=== PATIENT | male | born 1940 | race Asian ===

== ENCOUNTER 2016-05-26 09:29 | Emergency (ER) | payer OTHER ==
[~2016-05-26] VITALS: Ht 182.9 cm; Wt 110.0 kg
[~2016-05-26 09:29] MED LIST: ALBU8.5H3 INH; ALBU8.5H5 INH; PRED20TA PO
[2016-05-26 09:36] VITALS: Ht 182.9 cm; Wt 110.0 kg
--- NOTE | 2016-05-26 11:12 | ERD ---
ER Documentation Chief Complaint Date/Time DATE: 05/26/16 Chief Complaint Boil in nose HPI The patient is a 76-year-old male who presents to the Emergency Department with complaint of a "boil" in his nose. The patient reports that this boil has been present inside the left nostril for the past week. Yesterday, the boil began to spontaneously drain, with improvement in the patient's discomfort. The patient notes that he was seen for these symptoms by his primary medical provider on Tuesday, at which time the patient was placed on a course of Bactrim DS. He has been taking the antibiotics as prescribed, and feels as if his symptoms are improving. He has a follow-up appointment with his primary medical provider in 2 days. However, he presents today solely for pain control. He states that the antibiotics are treating the infection, but he continues to experience a throbbing, aching pain inside the left nostril. He rates his current pain as 6/10. He has not yet taken any medication for pain relief. He denies fevers, chills, nausea, vomiting, weakness, dizziness or headache. No other complaints at this time. ROS All systems reviewed and are negative except as per history of present illness. Medications Home Meds Active Scripts Ibuprofen* (Motrin*) 400 Mg Tab, 400 MG PO Q6, #20 TAB Prov:MARCIA TEJADA PA-C 05/26/16 Tramadol HCl (Tramadol HCl) 50 Mg Tablet, 50 MG PO Q6 Y for PAIN, #8 TAB Prov:MARCIA TEJADA PA-C 05/26/16 Albuterol Sulfate* (Proair HFA*) 8.5 Gm Hfa.aer.ad, 2 PUFF INH Q4, #1 INHALER Prov:CLAUDIA SNEED 09/19/15 Prednisone* (Prednisone*) 20 Mg Tab, 40 MG PO DAILY for 4 Days, TAB Prov:BRONSON CARRINGTON PA-C 02/18/15 Albuterol Sulfate* (Albuterol Sulfate* HFA) 8.5 Gm Hfa.aer.ad, 1-2 PUFF INH Q4 Y for SHORTNESS OF BREATH, #1 EA Prov:BRONSON CARRINGTON PA-C 02/18/15 Prednisone* (Prednisone*) 20 Mg Tab, 60 MG PO DAILY for 5 Days Prov:SELVIN BURCIAGA MD 11/27/14 Albuterol Sulfate* (Albuterol Sulfate* HFA) 8.5 Gm Hfa.aer.ad, 1-2 PUFF INH Q4 Y for SHORTNESS OF BREATH, #1 EA Prov:SELVIN BURCIAGA MD 11/27/14 Allergies Allergies: Coded Allergies: No Known Allergy (Unverified , 02/18/15) PMhx/Soc History of Surgery: No Anesthesia Reaction: No Hx Neurological Disorder: No Hx Respiratory Disorders: No Hx Cardiac Disorders: No Hx Psychiatric Problems: No Hx Miscellaneous Medical Probl: No Hx Alcohol Use: No Hx Substance Use: No Hx Tobacco Use: No Smoking Status: Former smoker Physical Exam Vitals Vital Signs Date Time Temp Pulse Resp B/P Pulse Ox O2 Delivery O2 Flow Rate FiO2 05/26/16 09:36 98.1 53 18 150/89 99 Physical Exam Const: Well-developed, well-nourished, in no acute distress. Head: Normocephalic. Atraumatic Eyes: Normal Conjunctiva ENT: Minimal amount of purulent discharge inside the left nostril. No nasal septal involvement. No focal abscess formation. No bleeding. Moist mucous membranes. Neck: Supple. No tenderness. Resp: Clear to auscultation bilaterally Cardio: Regular rate and rhythm Skin: Clean, dry, intact. Ext: Moving all extremities. Neur: Awake and alert Psych: Cooperative. Results 24 hrs Current Medications Medications (Trade) Dose Ordered Sig/Rosalina Route PRN Reason Start Time Stop Time Status Last Admin Dose Admin Ibuprofen (Motrin) 600 mg ONCE ONCE PO 05/26/16 11:30 05/26/16 11:31 DC 05/26/16 11:14 Procedures/MDM This is a 76-hear-old male presenting to the Emergency Department with a left- sided intranasal abscess that began spontaneously draining yesterday. The patient's symptoms began one week ago. Tuesday, he was placed on a course of Bactrim DS, which he has been taking as directed. Since starting the antibiotics , the patient has already noted improvement in his symptoms. However, he presents today for pain control. No nasal septal involvement noted. No evidence of sepsis. At this time, the patient is in stable condition and therefore he can be discharged home with prescriptions for Tramadol and Ibuprofen and strict return precautions for signs of worsening condition. The patient is advised to follow up with his primary medical provider within 1-2 days for reevaluation and further management, or return to the ED sooner for any new or worsening symptoms. I shared my medical decision making and plan with the patient and he verbally understands and agrees with the plan for further observation and care as an outpatient. At the time of discharge all questions were answered. Departure Diagnosis: Primary Impression: Nasal abscess Condition: Stable Patient Instructions: Abscess Drainage, Abscess, Antiobiotic Treatment Only Additional Instructions: Follow up with your primary medical provider in 1-2 days for reevaluation and further management. You may need to see an ENT specialist for further evaluation and well. Return to the ED sooner for any new or worsening symptoms. MARCIA TEJADA PA-C May 26, 2016 11:12
[2016-05-26] MEDS ORDERED: IBUP400T22 PO (11:13)
[2016-05-26] MEDS ORDERED: TRAM50TA2 PO (11:13)
[2016-05-26] MEDS ORDERED: IBUPROFEN 600 MG TAB PO ONE (11:30)
== END 2016-05-26 11:25 | disposition home or self-care (01) ==
LOC: FTE 09:29
DX: J34.0 Abscess, furuncle and carbuncle of nose (principal); Z87.891 Personal history of nicotine dependence
CPT/HCPCS: 99283

== ENCOUNTER 2016-11-12 10:00 | Emergency (ER) | payer OTHER ==
[~2016-11-12] VITALS: Ht 172.7 cm; Wt 101.5 kg
[~2016-11-12 10:00] MED LIST changes: +IBUP400T22 PO; +TRAM50TA2 PO
[2016-11-12 10:19] VITALS: Ht 172.7 cm; Wt 101.5 kg
[2016-11-12] MEDS ORDERED: ALBUTEROL 0.083% (NEB) 2.5 MG/3 ML AMP HHN STA (11:03)
[2016-11-12] MEDS ORDERED: DEXAMETHASONE 10 MG/ML 1 ML INJ IM ONE (11:30)
[2016-11-12] MEDS ORDERED: IPRATROPIUM (NEB) 0.5 MG/2.5 ML AMP HHN ONE (11:30)
--- NOTE | 2016-11-12 11:47 | RADRPT ---
PROCEDURE: XR Chest. CLINICAL INDICATION: cough x 2 wks, hx asthma TECHNIQUE: Single frontal view of the chest was obtained COMPARISON: Chest x-ray 09/19/2015 FINDINGS: The cardiomediastinal silhouette is within normal limits. No pneumothorax, pleural effusion, or consolidation is identified. There is no evidence of pulmonary vascular congestion. Biapical pleural parenchymal scarring is noted. There are degenerative changes of the visualized spine. IMPRESSION: No evidence of an acute cardiopulmonary process. No significant change compared to prior study. RPTAT: QQ Physician Josh Date Time Electronically viewed and signed by Physician Josh on 11/12/2016 11:47 RC/
[2016-11-12] MEDS ORDERED: GUAI-637 PO (12:24)
[2016-11-12] MEDS ORDERED: SODI126M NASAL (12:24)
--- NOTE | 2016-11-12 15:05 | ERD ---
ER Documentation Chief Complaint Date/Time DATE: 11/12/16 TIME: 14:56 Chief Complaint Pt Complains of a cough x 3 days HPI 76-year-old male with history of asthma is complaining of cough 2 weeks. The cough is nonproductive, worse at night. Cough is better after using the inhaler. He was seen by PCP, was given promethazine with codeine cough syrup, which had helped. He has now run out of the cough syrup, would like to have a refill. He does have a follow-up appointment was PCP in 3 days. Patient reports shortness breath at times when he is coughing, but denies shortness of breath at this time. Denies fever or chills. ROS All systems reviewed and are negative except as per history of present illness. Medications Home Meds Active Scripts Sodium Chloride (Saline Nasal Mist) 126 Ml Mist, 2 SPRAY NASAL Q2H Y for NASAL CONGESTION, #1 BOTTLE Prov:SHARON MANTILLA. [employer]ER 11/12/16 Guaifenesin* (Robitussin*) 100 Mg/5 Ml Syrup, 200 MG PO Q4H Y for COUGH, #120 ML Prov:SHARON MANTILLA. [employer] P[employer]CHER 11/12/16 Ibuprofen* (Motrin*) 400 Mg Tab, 400 MG PO Q6, #20 TAB Prov:MARCIA TEJADA PA-C 05/26/16 Tramadol HCl (Tramadol HCl) 50 Mg Tablet, 50 MG PO Q6 Y for PAIN, #8 TAB Prov:MARCIA TEJADA PA-C 05/26/16 Albuterol Sulfate* (Proair HFA*) 8.5 Gm Hfa.aer.ad, 2 PUFF INH Q4, #1 INHALER Prov:CLAUDIA SNEED 09/19/15 Prednisone* (Prednisone*) 20 Mg Tab, 40 MG PO DAILY for 4 Days, TAB Prov:BRONSON CARRINGTON PA-C 02/18/15 Albuterol Sulfate* (Albuterol Sulfate* HFA) 8.5 Gm Hfa.aer.ad, 1-2 PUFF INH Q4 Y for SHORTNESS OF BREATH, #1 EA Prov:BRONSON CARRINGTON PA-C 02/18/15 Prednisone* (Prednisone*) 20 Mg Tab, 60 MG PO DAILY for 5 Days Prov:SELVIN BURCIAGA MD 11/27/14 Albuterol Sulfate* (Albuterol Sulfate* HFA) 8.5 Gm Hfa.aer.ad, 1-2 PUFF INH Q4 Y for SHORTNESS OF BREATH, #1 EA Prov:SELVIN BURCIAGA MD 11/27/14 Allergies Allergies: Coded Allergies: No Known Allergy (Unverified , 02/18/15) PMhx/Soc History of Surgery: No Anesthesia Reaction: No Hx Neurological Disorder: No Hx Respiratory Disorders: Yes (Asthma) Hx Cardiac Disorders: No Hx Psychiatric Problems: No Hx Miscellaneous Medical Probl: No Hx Alcohol Use: No Hx Substance Use: No Hx Tobacco Use: No Physical Exam Vitals Vital Signs Date Time Temp Pulse Resp B/P Pulse Ox O2 Delivery O2 Flow Rate FiO2 11/12/16 11:35 114 20 98 21 11/12/16 10:19 97.0 120 20 155/96 98 Physical Exam General: Well-developed, well-nourished, conscious and coherent, in no distress Skin: Warm and dry without rash, good texture and turgor Head: Normocephalic without evidence of trauma Eyes: Sclera and conjunctivae normal; pupils equal, round, and reactive to light; extraocular movements are intact Chest: Normal AP diameter. Nontender. Severe wheezing noted throughout. Heart: Regular rate and rhythm. No murmur, rub, or gallops heard Abdomen: Soft and nontender without masses, guarding, or rebound. Bowel sounds are active. No hepatosplenomegaly Back: Without spinal or CVA tenderness Pelvis: Nontender to palpation and stable to compression Extremities: Full range of motion. Good strength bilaterally. No clubbing, cyanosis, or edema. Peripheral pulses are intact. Sensation intact Neuro: Alert and oriented 4, GCS 15. Cranial nerves grossly intact. Motor and sensory exams nonfocal. Moves all extremities. Speech clear. Gait normal Results 24 hrs Current Medications Medications (Trade) Dose Ordered Sig/Rosalina Route PRN Reason Start Time Stop Time Status Last Admin Dose Admin Albuterol (Proventil 0.083% (Neb)) 10 mg ONCE STAT HHN 11/12/16 11:03 11/12/16 11:07 DC 11/12/16 11:33 Ipratropium [place] (Atrovent 0.02% (Neb)) 1 mg ONCE ONCE HHN 11/12/16 11:30 11/12/16 11:31 DC 11/12/16 11:33 Dexamethasone (Decadron) 10 mg ONCE ONCE IM 11/12/16 11:30 11/12/16 11:31 DC 11/12/16 11:23 PROCEDURE: XR Chest. CLINICAL INDICATION: cough x 2 wks, hx asthma TECHNIQUE: Single frontal view of the chest was obtained COMPARISON: Chest x-ray 09/19/2015 FINDINGS: The cardiomediastinal silhouette is within normal limits. No pneumothorax, pleural effusion, or consolidation is identified. There is no evidence of pulmonary vascular congestion. Biapical pleural parenchymal scarring is noted. There are degenerative changes of the visualized spine. IMPRESSION: No evidence of an acute cardiopulmonary process. No significant change compared to prior study. RPTAT: QQ Physician Josh Date Time Electronically viewed and signed by Physician Josh on 11/12/2016 11: 47 RC/ CC: SHARON MANTILLA [employer] Procedures/MDM 76-year-old male with history of asthma present ED with cough 2 weeks. Checks rate chest x-ray is negative for acute cardiopulmonary abnormalities. Patient was given Decadron 10 mg IM in the ED. In addition, he received nebulizer treatment with 10 mg of albuterol and 1 mg of Atrovent. Patient reports breathing much better after the nebulizer treatment. Repeat exam showed much improved wheezing. Patient appears well, stable for discharge and outpatient management. Medical decision making shared with patient and family. Education provided to patient and family. Patient and family expressed understanding of the plan. Medications on discharge: Saline nasal spray, Robitussin. Follow-up: Primary care provider in 2-3 days or return to ED if worse. Disclaimer: Inadvertent spelling and grammatical errors are likely due to EHR/ dictation software use and do not reflect on the overall quality of patient care. Also, please note that the electronic time recorded on this note does not necessarily reflect the actual time of the patient encounter. Departure Diagnosis: Primary Impression: Asthma exacerbation Condition: Stable Patient Instructions: Asthma, Acute (Adult) Referrals: [facility] YOU HAVE RECEIVED A MEDICAL SCREENING EXAM AND THE RESULTS INDICATE THAT YOU DO NOT HAVE A CONDITION THAT REQUIRES URGENT TREATMENT IN THE EMERGENCY DEPARTMENT. FURTHER EVALUATION AND TREATMENT OF YOUR CONDITION CAN WAIT UNTIL YOU ARE SEEN IN YOUR DOCTORS OFFICE WITHIN THE NEXT 1-2 DAYS. IT IS YOUR RESPONSIBILITY TO MAKE AN APPOINTMENT FOR FOLOW-UP CARE. IF YOU HAVE A PRIMARY DOCTOR --you should call your primary doctor and schedule an appointment IF YOU DO NOT HAVE A PRIMARY DOCTOR YOU CAN CALL OUR PHYSICIAN REFERRAL HOTLINE AT IF YOU CAN NOT AFFORD TO SEE A PHYSICIAN YOU CAN CHOSE FROM THE FOLLOWING [facility] [address] [facility]. [facility] [address] [facility]. [facility] [address] [facility] [facility] [address] [facility]. [facility] [address] [facility]. [facility]. [address] Additional Instructions: Call your primary care doctor TOMORROW for an appointment during the next 2-3 days.See the doctor sooner or return here if your condition worsens before your appointment time. SHARON MANTILLA NP Nov 12, 2016 15:05
== END 2016-11-12 13:52 | disposition home or self-care (01) ==
LOC: FTE 10:00
DX: J45.901 Unspecified asthma with (acute) exacerbation (principal)
CPT/HCPCS: 71010; 94644; 96372; 99284; J1100

== ENCOUNTER 2017-07-24 12:10 | Emergency (ER) | END 2017-07-24 14:51 | disposition home or self-care (01) ==

== ENCOUNTER 2017-08-09 08:17 | Emergency (ER) | END 2017-08-09 10:07 | disposition home or self-care (01) ==

== ENCOUNTER 2017-08-27 13:50 | Inpatient (IN) | END 2017-08-29 16:27 | disposition home or self-care (01) | DRG 310 ==

== ENCOUNTER 2018-05-27 09:46 | Emergency (ER) | payer MEDICARE, OTHER ==
[~2018-05-27] VITALS: Ht 177.8 cm; Wt 102.0 kg
[~2018-05-27 09:46] MED LIST changes: -ALBU8.5H3 INH; -ALBU8.5H5 INH; +ALBU8.5H8 INH; +APIX5TAB PO; +D-ME473S2 PO; -IBUP400T22 PO; +METO-448 PO; -PRED20TA PO; -TRAM50TA2 PO
[2018-05-27 10:09] VITALS: BP 148/64; PULSE 95; RESP 18; Ht 177.8 cm; Wt 102.0 kg
[2018-05-27] MEDS ORDERED: ALBUTEROL 0.083% (NEB) 2.5 MG/3 ML AMP HHN STA (11:34)
[2018-05-27] MEDS ORDERED: ALBU18HF INHALATION (11:36)
[2018-05-27] MEDS ORDERED: ALBU2.5V3 NEB (11:36)
--- NOTE | 2018-05-27 11:40 | ERD ---
ER Documentation Chief Complaint Chief Complaint cough and runny nose x 2 weeks HPI 78-year-old male presents with a history of asthma and wheezing for the last several days. Denies fevers, productive mucus, chest pain, abdominal pain. He is out of the albuterol for his nebulizer and his Ventolin. He is holding a leftover bottle of prednisone from his primary doctor who is out of town. ROS All systems reviewed and are negative except as per history of present illness. Medications Home Meds Active Scripts Albuterol Sulfate* (Ventolin HFA*) 18 Gm Hfa.aer.ad, 2 PUFF INHALATION Q4H, #1 INHALER Prov:MARIA INES SAMANO MD 05/27/18 Albuterol Sulfate* (Albuterol Sulfate* Neb) 0.083%-3 Ml Neb, 2.5 MG NEB Q4 PRN for SHORTNESS OF BREATH, #30 EA Prov:MARIA INES SAMANO MD 05/27/18 Metoprolol Tartrate* (Lopressor*) 25 Mg Tab, 50 MG PO BID for 60 Days, #120 TAB Prov:CORONA LEAL MD 08/29/17 Apixaban* (Eliquis*) 5 Mg Tablet, 5 MG PO BID for 60 Days, #120 TAB Prov:CORONA LEAL MD 08/29/17 Albuterol Sulfate* (Proair HFA*) 8.5 Gm Hfa.aer.ad, 2 PUFF INH Q4, #1 INHALER Prov:ANDREWS MC PA-C 08/09/17 Dextromethorphan Hb-Promethazine Hcl* (Promethazine DM* Syrup) 473 Ml Syrup, 5 ML PO Q6 PRN for COUGH for 10 Days, ML Prov:ANDREWS MC PA-C 08/09/17 Allergies Allergies: Coded Allergies: No Known Allergy (Unverified , 08/27/17) PMhx/Soc History of Surgery: No Anesthesia Reaction: No Hx Neurological Disorder: No Hx Respiratory Disorders: Yes (ASTHMA) Hx Cardiac Disorders: No Hx Psychiatric Problems: No Hx Miscellaneous Medical Probl: No Hx Alcohol Use: No Hx Substance Use: No Hx Tobacco Use: Yes (QUIT 20 YRS AGO) FmHx Family History: No diabetes, No coronary disease, No other Physical Exam Vitals Vital Signs Date Temp Pulse Resp B/P (MAP) Pulse Ox O2 O2 Flow FiO2 Time Delivery Rate 05/27/18 97.1 95 18 148/64 98 10:09 (92) Physical Exam Const: No acute distress Head: Atraumatic Eyes: Normal Conjunctiva ENT: Normal External Ears, Nose and Mouth. Neck: Full range of motion. No meningismus. Resp: Clear to auscultation bilaterally. Scattered wheezing without rales or retractions. Cardio: Regular rate and rhythm, no murmurs Abd: Soft, non tender, non distended. Normal bowel sounds Skin: No petechiae or rashes Back: No midline or flank tenderness Ext: No cyanosis, or edema Neur: Awake and alert Psych: Normal Mood and Affect Results 24 hrs Current Medications Medications Dose Sig/Rosalina Start Time Status Last (Trade) Ordered Route PRN Stop Time Admin Dose Reason Admin Albuterol 5 mg ONCE STAT 05/27/18 DC (Proventil HHN 11:34 0.083% (Neb)) 05/27/18 11:36 10 mg ONCE ONCE 05/27/18 Dexamethasone IM 12:00 (Decadron) 05/27/18 12:01 Procedures/MDM Patient given Decadron 10 mg IM. Patient given albuterol treatment 5 mg. Patient had improved wheezing without rales or retractions or evidence of hypoxemia, signs of pneumonia on serial exam. Patient presents with what appears to be an uncomplicated asthma exacerbation. We will refill albuterol for his nebulizer, his Ventolin and he should continue his prednisone as prescribed by his primary doctor and follow-up this week with his PCP otherwise return to ER for new or worsening symptoms. Patient has no signs or symptoms of cardiac chest pain, abdominal pain, additional complications. The patient was stable with no new complaints during the ER course. Clinically, there is no current evidence to suggest meningitis, sepsis, acute abdomen, pneumonia, stroke, acute coronary syndrome, pulmonary embolism, aortic dissection or any other emergent condition appearing to require further evaluation or hospitalization. Patient counseled regarding my diagnostic impression and care plan. Prior to discharge all questions answered. Pt agrees with treatment plan and understands strict return precautions. Pt is instructed to follow up with primary care provider within 24-48 hours. Precautionary instructions provided including instructions to return to the ER if not improving or for any worsening or changing symptoms or concerns. Departure Diagnosis: Primary Impression: Asthma Asthma severity: unspecified severity Asthma persistence: unspecified Ast hma complication type: unspecified Qualified Codes: J45.909 - Unspecified asthma, uncomplicated Condition: Stable Patient Instructions: Asthma, Acute (Adult) Additional Instructions: Recheck for new or worsening symptoms with primary care doctor. Continue prednisone as prescribed. MARIA INES SAMANO MD May 27, 2018 11:40
[2018-05-27] MEDS ORDERED: DEXAMETHASONE 10 MG/ML 1 ML INJ IM ONE (12:00)
== END 2018-05-27 12:24 | disposition home or self-care (01) ==
LOC: FTE 09:46
DX: J45.901 Unspecified asthma with (acute) exacerbation (principal); Z87.891 Personal history of nicotine dependence
CPT/HCPCS: 94664; 96372; 99284; J1100

== ENCOUNTER 2018-08-18 08:42 | Emergency (ER) | payer MEDICARE, OTHER ==
[~2018-08-18] VITALS: Ht 167.6 cm; Wt 103.0 kg
[~2018-08-18 08:42] MED LIST changes: +ALBU18HF INHALATION; +ALBU2.5V3 NEB
[2018-08-18 08:44] VITALS: BP 133/90; PULSE 104; RESP 22; Ht 167.6 cm; Wt 103.0 kg
[2018-08-18] MEDS ORDERED: ALBUTEROL 0.083% (NEB) 2.5 MG/3 ML AMP NEB STA (08:57)
[2018-08-18] MEDS ORDERED: DEXAMETHASONE 10 MG/ML 1 ML INJ IM STA (08:57)
--- NOTE | 2018-08-18 09:48 | ERD ---
ER Documentation Chief Complaint Chief Complaint asthma attack HPI 78-year-old male presenting with wheezing x2 days. Patient has past medical history of asthma and is currently out of his medication. Patient called his doctor and he is out of town. Patient is her presenting to the ER with mild shortness of breath and wheezing. Patient denies chest pain or extremity weakness. Patient has no pain when ambulating. Patient denies numbness tingling, nausea or vomiting, headache, allergen exposure, rash. Patient is no longer smoker he is quit smoking for over 10 years. Patient denies any past medical surgeries and states his only history is asthma and he only takes medications for asthma. Patient denies fever chills night sweats. Patient is able to speak in full sentences without difficulty ROS All systems reviewed and are negative except as per history of present illness. Medications Home Meds Active Scripts Prednisone* (Prednisone*) 20 Mg Tab, 60 MG PO DAILY for 5 Days, TAB Prov:LISBETH PARDO PA-C 08/18/18 Ipratropium [place]* (Atrovent HFA*) 12.9 Gm Aer.w.adap, 2 PUFF INHALATION Q4H for SHORTNESS OF BREATH, #1 INHALER Prov:LISBETH PARDO PA-C 08/18/18 Albuterol Sulfate* (Ventolin HFA*) 18 Gm Hfa.aer.ad, 2 PUFF INHALATION Q4H, #1 INHALER Prov:MARIA INES SAMANO MD 05/27/18 Albuterol Sulfate* (Albuterol Sulfate* Neb) 0.083%-3 Ml Neb, 2.5 MG NEB Q4 PRN for SHORTNESS OF BREATH, #30 EA Prov:MARIA INES SAMANO MD 05/27/18 Metoprolol Tartrate* (Lopressor*) 25 Mg Tab, 50 MG PO BID for 60 Days, #120 TAB Prov:CORONA LEAL MD 08/29/17 Apixaban* (Eliquis*) 5 Mg Tablet, 5 MG PO BID for 60 Days, #120 TAB Prov:CORONA LEAL MD 08/29/17 Albuterol Sulfate* (Proair HFA*) 8.5 Gm Hfa.aer.ad, 2 PUFF INH Q4, #1 INHALER Prov:ANDREWS MC PA-C 08/09/17 Dextromethorphan Hb-Promethazine Hcl* (Promethazine DM* Syrup) 473 Ml Syrup, 5 ML PO Q6 PRN for COUGH for 10 Days, ML Prov:ANDREWS MC PA-C 08/09/17 Allergies Allergies: Coded Allergies: No Known Allergy (Unverified , 08/27/17) PMhx/Soc History of Surgery: No Anesthesia Reaction: No Hx Neurological Disorder: No Hx Respiratory Disorders: Yes (ASTHMA) Hx Cardiac Disorders: No Hx Psychiatric Problems: No Hx Miscellaneous Medical Probl: No Hx Alcohol Use: No Hx Substance Use: No Hx Tobacco Use: Yes (QUIT 20 YRS AGO) Smoking Status: Former smoker Physical Exam Vitals Vital Signs Date Temp Pulse Resp B/P (MAP) Pulse Ox O2 O2 Flow FiO2 Time Delivery Rate 08/18/18 89 20 97 21 09:12 08/18/18 96.9 104 22 133/90 99 08:44 (104) Physical Exam GENERAL: The patient is well-appearing, well-nourished, in no acute distress HEENT: Atraumatic. Conjunctivae are pink. Pupils equal, round, and reactive to light. There is no scleral icterus. Tympanic membranes clear bilaterally. Oropharynx clear. No nystagmus or photophobia. NECK: C-spine is soft and supple. There is no meningismus. There is no cervical lymphadenopathy. CHEST: Audible wheezing, wheezing heard on auscultation, HEART: Regular rate and rhythm. No murmurs, clicks, rubs or gallops. ABDOMEN:Soft, nontender and nondistended. Good bowel sounds. No rebound or guarding. No gross peritonitis. No gross organomegaly or masses. No Lam sign or McBurney point tenderness. BACK: No midline or flank tenderness. EXTREMITIES: Equal pulses bilaterally. There is no peripheral clubbing, cyanosis or edema. No focal swelling or erythema. Full range of motion. Grossly neurovascularly intact. Results 24 hrs Current Medications Medications Dose Sig/Rosalina Start Time Status Last (Trade) Ordered Route PRN Stop Time Admin Dose Reason Admin Albuterol 2.5 mg ONCE STAT 08/18/18 DC 08/18/18 (Proventil NEB 08:57 09:10 0.083% (Neb)) 08/18/18 09:00 10 mg ONCE STAT 08/18/18 DC 08/18/18 Dexamethasone IM 08:57 09:08 (Decadron) 08/18/18 09:00 Procedures/MDM ED course: The patient was stable throughout the ED course. The patient and/or family informed of laboratory and diagnostic imaging results throughout the ED course. Diagnostic imaging: Read by radiologist PROCEDURE: XR Chest. CLINICAL INDICATION: Asthma exacerbation . TECHNIQUE: Single frontal chest x-ray. COMPARISON: CHEST 07/24/2017; CHEST 11/12/2016; [facility] CHEST 09/19/2015; [place] CHEST 02/18/2015 FINDINGS: The lungs are clear of acute infiltrates, edema, effusions, or masses.. The cardiac silhouette is magnified.. The osseous structures are intact. IMPRESSION: No acute cardiopulmonary disease. Medications given in ER: Albuterol Dexamethasone Patient tolerated medication well with no adverse reactions. Patient reported improvement in pain. Medical decision makin-year-old male presenting for wheezing. Patient has history of asthma and ran out of his medications the other day. Physical exam was notable for audible wheezing and wheezing heard on auscultation. Patient's checks x-ray was unremarkable. patient denies chest pain, weakness, dizziness, fatigue, fever, chills. Patient was given an RT consult and a breathing treatment was administered. On reevaluation the patient no longer had audible wheezing. Patient states he feels much better. At this time I have low suspicion for pne umonia, meningitis, sinusitis, otitis externa, acute otitis media, strep pharyngitis, epiglottitis or peritonsillar abscess, NC, CHF, myocarditis, cardiac tamponade, PE, pneumothorax, DVT. Patient is being discharged with prescription for albuterol, prednisone. Patient was informed to only start the prednisone if symptoms do not improve over the next 2 days. I explained to the patient that the steroid we gave him in the ER will last for the next 3 days. I am sending him home with a prescription for prednisone because he states his doctors out of town and he is not sure if he can get into the office with another provider. I advised the patient the adverse effect of overtaking steroids. The patient understands and is in agreement to the treatment plan. Patient is good to try and get in with another provider at his primary care doctor the next 2 days and if symptoms worsen he will return to the ER immediately. All questions were answered upon discharge Prescription for home: Albuterol Prednisone Discharge: At this time, patient is stable for discharge and outpatient management. I have instructed the patient to follow-up with his\her primary care physician in 1 to 2 days. I have discussed with the patient the possibility of needing to see a specialist for further work-up and imaging studies if symptoms persist. I have instructed the patient to promptly return to the ER for any new or worsening symptoms including increased pain, fever, nausea, vomiting, weakness or LOC. The patient and\or family expressed understanding of and agreement with this plan. All questions were answered. Home care instructions were provided. Disclaimer: Inadvertent spelling and grammatical errors are likely due to EHR\dictation software use and do not reflect on the overall quality of patient care. Also, please note that the electronic time recorded on the note does not necessarily reflect the actual time of the patient encounter. Departure Diagnosis: Primary Impression: Asthma exacerbation Asthma severity: mild Asthma persistence: intermittent Qualified Codes: J45.21 - Mild intermittent asthma with (acute) exacerbation Condition: Stable LISBETH PARDO PA-C Aug 18, 2018 09:48
[2018-08-18] MEDS ORDERED: ATRO INHALATION (10:01)
[2018-08-18] MEDS ORDERED: PRED20TA PO (10:01)
[2018-09-08] MEDS ORDERED: PRED20TA PO (12:48)
[2018-09-08] MEDS ORDERED: ALBU8.5H8 INH (12:48)
== END 2018-08-18 10:10 | disposition home or self-care (01) ==
LOC: FTE 08:42
DX: J45.21 Mild intermittent asthma with (acute) exacerbation (principal); Z76.0 Encounter for issue of repeat prescription; Z87.891 Personal history of nicotine dependence
CPT/HCPCS: 71045; 94664; J1100; 96372

== ENCOUNTER → 2018-09-08 | Emergency (ER) | payer MEDICARE, OTHER ==
[~2018-09-08] VITALS: Ht 180.3 cm; Wt 101.0 kg
[~2018-09-08] MED LIST changes: +ALBUTEROL 0.083% (NEB) 2.5 MG/3 ML AMP HHN STA; +ATRO INHALATION; +DEXAMETHASONE 10 MG/ML 1 ML INJ IM ONE; +IPRATROPIUM (NEB) 0.5 MG/2.5 ML AMP HHN ONE; +PRED20TA PO
[2018-09-08 10:25] VITALS: BP 138/88; PULSE 92; RESP 18; Ht 180.3 cm; Wt 101.0 kg
--- NOTE | 2018-09-08 13:27 | ERD ---
ER Documentation Chief Complaint Chief Complaint cough , chest congestion x 4 days h/o asthma HPI 78 yr old male complaining exacerbation. Patient states he has a long history of asthma and has been using an inhaler however it seems to be running out. He states he did not unable to follow-up with his primary doctor to obtain a new inhaler. Denies any fevers. Denies other medical problems. Denies chest pain. NKDA. Surgical history denies. Social history denies ROS All systems reviewed and are negative except as per history of present illness. Medications Home Meds Active Scripts Albuterol Sulfate* (Proair HFA*) 8.5 Gm Hfa.aer.ad, 2 PUFF INH Q4, #1 INHALER Prov:BRONSON CARRINGTON PA-C 09/08/18 Prednisone* (Prednisone*) 20 Mg Tab, 40 MG PO DAILY for 4 Days, TAB Prov:BRONSON CARRINGTON PA-C 09/08/18 Prednisone* (Prednisone*) 20 Mg Tab, 60 MG PO DAILY for 5 Days, TAB Prov:LISBETH PARDO PA-C 08/18/18 Ipratropium [place]* (Atrovent HFA*) 12.9 Gm Aer.w.adap, 2 PUFF INHALATION Q4H for SHORTNESS OF BREATH, #1 INHALER Prov:LISBETH PARDO PA-C 08/18/18 Albuterol Sulfate* (Ventolin HFA*) 18 Gm Hfa.aer.ad, 2 PUFF INHALATION Q4H, #1 INHALER Prov:MARIA INES SAMANO MD 05/27/18 Albuterol Sulfate* (Albuterol Sulfate* Neb) 0.083%-3 Ml Neb, 2.5 MG NEB Q4 PRN for SHORTNESS OF BREATH, #30 EA Prov:MARIA INES SAMANO MD 05/27/18 Metoprolol Tartrate* (Lopressor*) 25 Mg Tab, 50 MG PO BID for 60 Days, #120 TAB Prov:CORONA LEAL MD 08/29/17 Apixaban* (Eliquis*) 5 Mg Tablet, 5 MG PO BID for 60 Days, #120 TAB Prov:CORONA LEAL MD 08/29/17 Albuterol Sulfate* (Proair HFA*) 8.5 Gm Hfa.aer.ad, 2 PUFF INH Q4, #1 INHALER Prov:ANDREWS MC PA-C 08/09/17 Dextromethorphan Hb-Promethazine Hcl* (Promethazine DM* Syrup) 473 Ml Syrup, 5 ML PO Q6 PRN for COUGH for 10 Days, ML Prov:ANDREWS MC PA-C 08/09/17 Allergies Allergies: Coded Allergies: No Known Allergy (Unverified , 08/27/17) PMhx/Soc History of Surgery: No Anesthesia Reaction: No Hx Neurological Disorder: No Hx Respiratory Disorders: Yes (ASTHMA) Hx Cardiac Disorders: No Hx Psychiatric Problems: No Hx Miscellaneous Medical Probl: No Hx Alcohol Use: No Hx Substance Use: No Hx Tobacco Use: Yes (QUIT 20 YRS AGO) Smoking Status: Former smoker FmHx Family History: No diabetes, No coronary disease, No other Physical Exam Vitals Vital Signs Date Temp Pulse Resp B/P (MAP) Pulse Ox O2 O2 Flow FiO2 Time Delivery Rate 09/08/18 91 18 99 21 11:52 09/08/18 98.6 92 18 138/88 98 10:25 (105) Physical Exam GENERAL: The patient is well-appearing, well-nourished, in no acute distress HEENT: Atraumatic. Conjunctivae are pink. Pupils equal, round, and reactive to light. There is no scleral icterus. Tympanic membranes clear bilaterally. Oropharynx clear. NECK: C-spine is soft and supple. There is no meningismus. There is no cervical lymphadenopathy. CHEST: Diffuse wheezing heard on auscultation. No focal rhonchi. HEART: Regular rate and rhythm. No murmurs, clicks, rubs or gallops. Results 24 hrs Current Medications Medications Dose Sig/Rosalina Start Time Status Last (Trade) Ordered Route PRN Stop Time Admin Dose Reason Admin 10 mg ONCE ONCE 09/08/18 DC 09/08/18 Dexamethasone IM 11:30 09/08/18 11:29 (Decadron) 11:31 Albuterol 10 mg ONCE STAT 09/08/18 DC 09/08/18 (Proventil HHN 11:09 09/08/18 11:51 0.083% (Neb)) 11:11 Ipratropium 1 mg ONCE ONCE 09/08/18 DC 09/08/18 [place] HHN 11:30 09/08/18 11:51 (Atrovent 11:31 0.02% (Neb)) Procedures/MDM ER course: 1 hour continuous treatment of albuterol with Atrovent given. Decadron given in ED. On reevaluation patient symptoms resolved. MDM: 78-year-old male presenting with cough and congestion with asthma exacerbation x4 days. Patient symptoms improved after breathing treatment. I have low suspicion for pneumonia. I have low suspicion for respiratory distress or hypoxia. I have low suspicion for cardiac abnormalities. Patient is discharged with strict ER precautions and told to follow-up with primary care within 1 to 2 days for close evaluation. Patient is told symptoms change or worsen to return immediately to the ER. All questions answered at discharge Departure Diagnosis: Primary Impression: Asthma Condition: Stable Patient Instructions: Asthma Referrals: [facility] YOU HAVE RECEIVED A MEDICAL SCREENING EXAM AND THE RESULTS INDICATE THAT YOU DO NOT HAVE A CONDITION THAT REQUIRES URGENT TREATMENT IN THE EMERGENCY DEPARTMENT. FURTHER EVALUATION AND TREATMENT OF YOUR CONDITION CAN WAIT UNTIL YOU ARE SEEN IN YOUR DOCTORS OFFICE WITHIN THE NEXT 1-2 DAYS. IT IS YOUR RESPONSIBILITY TO MAKE AN APPOINTMENT FOR FOLOW-UP CARE. IF YOU HAVE A PRIMARY DOCTOR --you should call your primary doctor and schedule an appointment IF YOU DO NOT HAVE A PRIMARY DOCTOR YOU CAN CALL OUR PHYSICIAN REFERRAL HOTLINE AT IF YOU CAN NOT AFFORD TO SEE A PHYSICIAN YOU CAN CHOSE FROM THE FOLLOWING [facility] [address] [facility] [facility] [address] [facility] [place] [facility] [address] [facility] [facility] [address] [facility] [facility] [address] [facility] [facility]. [address] Additional Instructions: FOLLOW UP WITH YOUR PRIMARY CARE PHYSICIAN TOMORROW.Return to this facility if you are not improving as expected. BRONSON CARRINGTON PA-C Sep 08, 2018 13:27
== END | disposition home or self-care (01) ==
LOC: FTE 10:19
DX: J45.901 Unspecified asthma with (acute) exacerbation (principal); Z87.891 Personal history of nicotine dependence; Z79.01 Long term (current) use of anticoagulants
CPT/HCPCS: 94644; 96372; 99284; J1100

== ENCOUNTER 2018-10-23 11:23 | Emergency (ER) | payer MEDICARE, OTHER ==
[~2018-10-23] VITALS: Ht 182.9 cm; Wt 101.4 kg
[~2018-10-23 11:23] MED LIST changes: -ALBUTEROL 0.083% (NEB) 2.5 MG/3 ML AMP HHN STA; -DEXAMETHASONE 10 MG/ML 1 ML INJ IM ONE; -IPRATROPIUM (NEB) 0.5 MG/2.5 ML AMP HHN ONE
[2018-10-23 11:28] VITALS: Ht 182.9 cm; Wt 101.4 kg
[2018-10-23] MEDS ORDERED: IPRATROPIUM (NEB) 0.5 MG/2.5 ML AMP NEB STA (13:46)
[2018-10-23] MEDS ORDERED: ALBUTEROL 0.083% (NEB) 2.5 MG/3 ML AMP NEB STA (13:46)
[2018-10-23] MEDS ORDERED: METHYLPREDNISOLONE 125 MG INJ IV STA (13:46)
[2018-10-23 15:20] VITALS: BP 138/82; PULSE 108; RESP 18
== END 2018-10-23 15:26 | disposition home or self-care (01) ==
LOC: FTE 11:23
DX: J45.901 Unspecified asthma with (acute) exacerbation (principal); Z87.891 Personal history of nicotine dependence
CPT/HCPCS: 71045; 94644; 96374; 99284; J2930

== ENCOUNTER 2018-11-28 08:54 | Emergency (ER) | payer MEDICARE, OTHER ==
[~2018-11-28] VITALS: Ht 182.9 cm; Wt 101.9 kg
[~2018-11-28 08:54] MED LIST changes: +AZIT250T PO; +DILT60TA29 PO; +DOXY-214 PO; +GUAI120S25 PO; +LISI-313 PO; +MED4DP PO
[2018-11-28 09:13] VITALS: Ht 182.9 cm; Wt 101.9 kg
[2018-11-28] MEDS ORDERED: ALBUTEROL 0.083% (NEB) 2.5 MG/3 ML AMP HHN STA (09:51)
[2018-11-28] MEDS ORDERED: METHYLPREDNISOLONE 125 MG INJ IM ONE (10:00)
[2018-11-28] MEDS ORDERED: IPRATROPIUM (NEB) 0.5 MG/2.5 ML AMP HHN ONE (10:00)
[2018-11-28 11:25] VITALS: BP 132/81; PULSE 88; RESP 20
== END 2018-11-28 11:25 | disposition home or self-care (01) ==
LOC: FTE 08:54
DX: J45.901 Unspecified asthma with (acute) exacerbation (principal); Z79.01 Long term (current) use of anticoagulants; Z87.891 Personal history of nicotine dependence
CPT/HCPCS: 93005; 94664; 96372; 99284; J2930